=== PATIENT | female | born 1970 | race Caucasian/White ===

== ENCOUNTER 2017-12-14 11:14 | Emergency (ER) | payer BC ==
[~2017-12-14] VITALS: Ht 160 cm; Wt 65.9 kg
[2017-12-14 11:20] VITALS: BP 134/89; TEMP 99
[2017-12-14] MEDS ORDERED: ZITHROMAX Z PA250 MG PO (12:03)
[2017-12-14] MEDS ORDERED: TESSALON PERLE200 MG PO (12:03)
[2017-12-14] MEDS ORDERED: PROAIR HFA0.09 MG/AC IH (12:05)
[2017-12-14] MEDS ORDERED: LEVOXYL0.025 MG PO (12:09)
[2017-12-14] MEDS ORDERED: [UNRECOGNIZED DRUG - OTHER] PO (12:10)
[2017-12-14] MEDS ORDERED: ZOLOFT 100MG100 MG PO (12:10)
[2017-12-14] MEDS ORDERED: EFFEXOR 50M50 MG/TAB PO (12:11)
[2017-12-14] MEDS ORDERED: SABOXONE PO (12:12)
[2017-12-14] MEDS ORDERED: AMBIEN CR6.25 MG PO (12:13)
[2017-12-14] MEDS ORDERED: VALIUM 2MG T2 MG/TAB PO (12:14)
[2017-12-14 12:28] VITALS: PULSE 90
== END 2017-12-14 12:28 | disposition short-term general hospital (02) ==
LOC: COL.ER 11:14
DX: J20.9 Acute bronchitis, unspecified (principal); F32.9 Major depressive disorder, single episode, unspecified; E03.9 Hypothyroidism, unspecified; F17.210 Nicotine dependence, cigarettes, uncomplicated; F12.90 Cannabis use, unspecified, uncomplicated; Z98.890 Other specified postprocedural states; Z88.5 Allergy status to narcotic agent

== ENCOUNTER → 2017-12-30 | Outpatient (CLI) | payer BC ==
[~2017-12-30] MED LIST: AMBIEN CR6.25 MG PO; EFFEXOR 50M50 MG/TAB PO; LEVOXYL0.025 MG PO; PROAIR HFA0.09 MG/AC IH; SABOXONE PO; TESSALON PERLE200 MG PO; VALIUM 2MG T2 MG/TAB PO; ZITHROMAX Z PA250 MG PO; ZOLOFT 100MG100 MG PO; [UNRECOGNIZED DRUG - OTHER] PO
== END ==
LOC: COL.RAD 12-17 10:00
DX: S43.402A Unspecified sprain of left shoulder joint, initial encounter (principal); M75.102 Unspecified rotator cuff tear or rupture of left shoulder, not specified as traumatic
CPT/HCPCS: A9585; Q9967

== ENCOUNTER → 2018-01-02 | Outpatient (CLI) | payer BC | LOC: ZCOL.LAB 16:41 | DX: Z01.812 Encounter for preprocedural laboratory examination (principal); Z86.14 Personal history of Methicillin resistant Staphylococcus aureus infection ==

== ENCOUNTER → 2018-03-17 | Outpatient (CLI) | payer OTHER ==
[~2018-03-17] MED LIST changes: +ANXIETY MED; +BACTRIM DS 8001 TAB PO; +CEPHALEXIN500 M1 PO; +CHANTIX STARTER1 TAB PO; +CHANTIX1 MG PO; +FLEXERIL 1010 MG/TAB PO; +KLONOPIN WAFER0.5 MG PO; +LEVAQUIN 5500 MG/TA1; +LEVAQUIN 750MG750 M1 PO; +LORTAB 5/500 501 TAB PO; +NO HOME MEDICATIONS; +NORCO 325 MG-51 TAB PO; +PERCOCET 5/321 UDTAB PO; +PHENERGAN W/CO120 ML PO; +PREDNISONE20 MG PO; +REMERON 15M15 MG/TA1 PO; +XANAX0.5 MG PO
== END ==
LOC: MC.RAD 13:56
DX: Z12.31 Encounter for screening mammogram for malignant neoplasm of breast (principal)

== ENCOUNTER → 2018-06-03 | Outpatient (CLI) | payer OTHER | LOC: ZCOL.LAB 15:56 | DX: Z01.812 Encounter for preprocedural laboratory examination (principal); Z86.14 Personal history of Methicillin resistant Staphylococcus aureus infection ==

== ENCOUNTER 2018-06-12 18:04 | Emergency (ER) | payer OTHER ==
[~2018-06-12] VITALS: Ht 63 cm; Wt 69.5 kg
[2018-06-12 18:07] VITALS: BP 153/77; TEMP 98.5
[2018-06-12] MEDS ORDERED: ULTRAM 50MG TAB50 MG PO (18:28)
[2018-06-12] MEDS ORDERED: NORCO 325 MG-7.1 TAB PO (18:28)
[2018-06-12] MEDS ORDERED: SEROQUEL300 MG PO (18:44)
[2018-06-12] MEDS ORDERED: CYMBALTA 20MG20 MG PO (18:44)
[2018-06-12] MEDS ORDERED: KLONOPIN 1MG1 MG (18:46)
[2018-06-12] MEDS ORDERED: CHANTIX START M1 TAB PO (18:49)
[2018-06-12 20:05] VITALS: PULSE 81
== END 2018-06-12 20:05 | disposition home or self-care (01) ==
LOC: COL.ER 18:04
DX: G89.18 Other acute postprocedural pain (principal); M25.512 Pain in left shoulder; F32.9 Major depressive disorder, single episode, unspecified; Z98.890 Other specified postprocedural states
CPT/HCPCS: J1170; J1885; J3010

== ENCOUNTER 2018-06-13 16:28 | Emergency (ER) | payer OTHER ==
[~2018-06-13] VITALS: Ht 160 cm; Wt 72.1 kg
[~2018-06-13 16:28] MED LIST changes: +CHANTIX START M1 TAB PO; +CYMBALTA 20MG20 MG PO; +KLONOPIN 1MG1 MG; +NORCO 325 MG-7.1 TAB PO; +SEROQUEL300 MG PO; +ULTRAM 50MG TAB50 MG PO
[2018-06-13 16:30] VITALS: TEMP 98.1
[2018-06-13 20:03] LABS: BASO # 0.1 (0.0-0.2); BASO % 0.7 % (0.0-2.0); EOS # 0.3 (0.0-0.7); EOS % 2.5 % (0-4.0); GRAN # 5.7 (1.4-6.5); GRAN % 53.9 % (42.2-75.2); HEMOGLOBIN 11.7 g/dl (12.5-16.0); LYMPH % 37.9 % (20.0-51.0); MEAN CELL VOLUME 88 fl (80.0-100.0); MEAN CORPUSCULAR HEMOGLOBIN 30 pg (27.0-31.0); MEAN CORPUSCULAR HGB CONC 34 g/dl (33.0-37.0); MEAN PLATELET VOLUME 9.9 fl (7.4-10.4); MONO # 0.5 (0.1-0.6); MONO % 4.7 % (1.7-9.3); PLATELET COUNT 202 K/mm3 (130-400); RED BLOOD COUNT 3.96 M/mm3 (4.10-5.30); REDCELL DISTRIBUTION WIDTH-CV 13.2 % (11.5-14.5)
[2018-06-13 20:07] LABS: HEMATOCRIT 34.9 % (37.0-47.0)
[2018-06-13 20:41] LABS: BILIRUBIN,TOTAL 0.2 mg/dL (0.0-1.0); CALCIUM 9.1 mg/dL (8.4-10.2); CREATININE, serum 0.83 (0.52-1.25); POTASSIUM 4.2 mmol/L (3.4-5.0); TOTAL PROTEIN 6.9 gm/dL (6.4-8.2)
[2018-06-13 21:55] VITALS: BP 142/92; PULSE 73
== END 2018-06-13 21:59 | disposition home or self-care (01) ==
LOC: COL.ER 16:28
PROVIDERS: Emergency Medicine
DX: G89.18 Other acute postprocedural pain (principal); M25.512 Pain in left shoulder; M79.641 Pain in right hand; F11.21 Opioid dependence, in remission; F32.9 Major depressive disorder, single episode, unspecified; J45.909 Unspecified asthma, uncomplicated
CPT/HCPCS: J3010; J7030

== ENCOUNTER → 2018-12-05 | Outpatient (CLI) | payer OTHER | LOC: COL.RAD 10:30 | DX: M25.412 Effusion, left shoulder (principal) ==

== ENCOUNTER → 2019-03-06 | Outpatient (CLI) | payer OTHER | LOC: ZCOL.LAB 12:57 | DX: Z11.2 Encounter for screening for other bacterial diseases (principal) ==

== ENCOUNTER → 2019-09-07 | Outpatient (CLI) | payer OTHER | LOC: MC.RAD 10:00 | DX: Z12.31 Encounter for screening mammogram for malignant neoplasm of breast (principal) ==

== ENCOUNTER → 2021-04-12 | Outpatient (CLI) | payer OTHER | LOC: MC.RAD 12:44 | DX: Z12.31 Encounter for screening mammogram for malignant neoplasm of breast (principal) ==